=== PATIENT | female | born 1990 | race Caucasian/White ===

== ENCOUNTER 2016-09-30 17:20 | Emergency (ER) | payer BC ==
[~2016-09-30] VITALS: Ht 162.5 cm; Wt 65.8 kg
[~2016-09-30 17:20] MED LIST: CORDROL20 MG PO; EPI EZ PEN1 MG/ML IM; MACROBID100 M1 PO; ZOLOFT100 MG PO
[2016-09-30 18:13] LABS: BASO % 0.2 % (0.0-1.0); EOS % 0.4 % (1.0-4.0); HEMATOCRIT 42.4 % (37.0-47.0); HEMOGLOBIN 14.5 g/dl (12.0-16.0); LYMPH # 0.4 10*3/uL (1.3-4.4); LYMPH % 7.6 % (27.0-41.0); MEAN CELL VOLUME 90.4 fl (81.0-99.0); MEAN CORPUSCULAR HGB 30.9 pg (27.0-31.0); MEAN CORPUSCULAR HGB CONC 34.2 g/dl (33.0-37.0); MEAN PLATELET VOLUME 9.2 fl (9.6-12.3); MONO # 0.4 10*3/uL (0.1-1.0); MONO % 7.2 % (3.0-9.0); NEUT # 4.5 10*3/uL (2.3-7.9); NEUT % 84.4 % (47.0-73.0); PLATELET COUNT AUTOMATED 169 10*3/uL (130-400); RED BLOOD COUNT 4.69 10*6/uL (4.10-5.10); RED CELL DISTRI WIDTH 13.6 % (0-14.5); WHITE BLOOD COUNT 5.3 10*3/uL (4.8-10.8)
[2016-09-30 18:14] LABS: BILIRUBIN NEGATIVE (NEGATIVE); BLOOD 3+ (NEGATIVE); CLARITY SL CLOUDY (CLEAR); COLOR YELLOW (YELLOW); GLUCOSE NEGATIVE (NEGATIVE); KETONE NEGATIVE (NEGATIVE); LEUKO ESTERASE NEGATIVE (NEGATIVE); NITRITE NEGATIVE (NEGATIVE); PROTEIN TRACE (NEGATIVE); SPECIFIC GRAVITY 1.025 (1.005-1.030); UROBILINOGEN 0.2 E.U./dl (0.2-1.0)
[2016-09-30 18:22] LABS: BACTERIA 4+; URINE REFLEX COMMENT YES (NO)
[2016-09-30 18:29] LABS: ALBUMIN 4.3 gm/dl (3.1-4.5); ALKALINE PHOSPHATASE 34 U/L (45-117); BILIRUBIN, TOTAL 0.6 mg/dl (0.2-1.0); BUN 12 mg/dl (7-24); CARBON DIOXIDE 24 mmol/L (21-32); CHLORIDE 106 mmol/L (98-107); EST GLOM FILT AFRICAN AMERICAN > 60 ml/min; GLUCOSE 98 mg/dL (65-99); POTASSIUM 4.1 mmol/L (3.5-5.1); SGOT/AST 16 IU/L (3-35); SGPT/ALT 28 U/L (12-78); SODIUM 141 mmol/L (136-145); TOTAL PROTEIN 7.6 gm/dL (6.4-8.2)
[2016-09-30] MEDS ORDERED: ZOFRAN4 MG PO (18:57)
== END 2016-09-30 18:58 | disposition home or self-care (01) ==
LOC: ED 17:20
PROVIDERS: Nurse Practitioner Family
DX: B34.9 Viral infection, unspecified (principal); F17.200 Nicotine dependence, unspecified, uncomplicated; Z88.0 Allergy status to penicillin; Z88.1 Allergy status to other antibiotic agents; Z88.2 Allergy status to sulfonamides

== ENCOUNTER 2017-07-11 22:39 | Emergency (ER) | payer OTHER ==
[~2017-07-11] VITALS: Ht 162.5 cm; Wt 68.0 kg
[~2017-07-11 22:39] MED LIST changes: +ZOFRAN4 MG PO
[2017-07-11] MEDS ORDERED: PAXIL10 MG PO (22:47)
[2017-07-11] MEDS ORDERED: ATIVAN1 MG PO (22:48)
[2017-07-11 23:07] LABS: BILIRUBIN NEGATIVE (NEGATIVE); BLOOD 3+ (NEGATIVE); CLARITY SL CLOUDY (CLEAR); COLOR YELLOW (YELLOW); GLUCOSE NEGATIVE (NEGATIVE); KETONE NEGATIVE (NEGATIVE); LEUKO ESTERASE NEGATIVE (NEGATIVE); NITRITE NEGATIVE (NEGATIVE); PH 6.5 (5.0-9.0); SPECIFIC GRAVITY 1.015 (1.005-1.030)
[2017-07-11 23:19] LABS: BASO % 0.3 % (0.0-1.0); EOS # 0.1 10*3/uL (0.0-0.4); EOS % 2.2 % (1.0-4.0); HEMATOCRIT 34.8 % (37.0-47.0); HEMOGLOBIN 11.5 g/dl (12.0-16.0); LYMPH # 0.9 10*3/uL (1.3-4.4); LYMPH % 15.3 % (27.0-41.0); MEAN CELL VOLUME 93.3 fl (81.0-99.0); MEAN CORPUSCULAR HGB 30.8 pg (27.0-31.0); MEAN PLATELET VOLUME 9.3 fl (9.6-12.3); MONO # 0.6 10*3/uL (0.1-1.0); MONO % 10.3 % (3.0-9.0); NEUT # 4.3 10*3/uL (2.3-7.9); NEUT % 71.7 % (47.0-73.0); PLATELET COUNT AUTOMATED 219 10*3/uL (130-400); RED BLOOD COUNT 3.73 10*6/uL (4.10-5.10); RED CELL DISTRI WIDTH 13.4 % (0-14.5); WHITE BLOOD COUNT 5.9 10*3/uL (4.8-10.8)
[2017-07-11 23:20] LABS: BACTERIA 2+; MUCOUS TRACE
[2017-07-11 23:34] LABS: ALBUMIN 3.5 gm/dl (3.1-4.5); ALKALINE PHOSPHATASE 52 U/L (45-117); BUN 8 mg/dl (7-24); CHLORIDE 107 mmol/L (98-107); CREATININE 0.85 mg/dL (0.55-1.02); LIPASE 132 U/L (73-393); SGOT/AST 17 IU/L (3-35); SGPT/ALT 18 U/L (12-78); SODIUM 141 mmol/L (136-145)
[2017-07-11] MEDS ORDERED: TESSALON PERLE100 M1 PO (23:53)
[2017-07-11] MEDS ORDERED: PRILOSEC20 M1 PO (23:53)
== END 2017-07-12 00:18 | disposition home or self-care (01) ==
LOC: ED 22:39
PROVIDERS: Physician Assistant
DX: K29.70 Gastritis, unspecified, without bleeding (principal); R10.13 Epigastric pain; K21.9 Gastro-esophageal reflux disease without esophagitis; F17.200 Nicotine dependence, unspecified, uncomplicated; Z79.899 Other long term (current) drug therapy; Z88.2 Allergy status to sulfonamides; Z88.1 Allergy status to other antibiotic agents; Z88.6 Allergy status to analgesic agent

== ENCOUNTER 2017-07-16 18:11 | Emergency (ER) | payer OTHER ==
[~2017-07-16] VITALS: Ht 162.5 cm; Wt 72.6 kg
[~2017-07-16 18:11] MED LIST changes: +ATIVAN1 MG PO; +PAXIL10 MG PO; +PRILOSEC20 M1 PO; +TESSALON PERLE100 M1 PO
[2017-07-16] MEDS ORDERED: LEVOFLOXACIN500 MG PO (18:32)
== END 2017-07-16 18:37 | disposition home or self-care (01) ==
LOC: ED 18:11
DX: Z20.2 Contact with and (suspected) exposure to infections with a predominantly sexual mode of transmission (principal); F17.200 Nicotine dependence, unspecified, uncomplicated; F10.10 Alcohol abuse, uncomplicated; Z79.899 Other long term (current) drug therapy; Z88.2 Allergy status to sulfonamides; Z88.1 Allergy status to other antibiotic agents; Z88.8 Allergy status to other drugs, medicaments and biological substances

== ENCOUNTER 2017-09-12 06:38 | Emergency (ER) | payer OTHER ==
[~2017-09-12] VITALS: Ht 152.4 cm; Wt 77.1 kg
[~2017-09-12 06:38] MED LIST changes: +LEVOFLOXACIN500 MG PO
[2017-09-12 07:27] LABS: BILIRUBIN NEGATIVE (NEGATIVE); BLOOD NEGATIVE (NEGATIVE); CLARITY CLEAR (CLEAR); COLOR YELLOW (YELLOW); GLUCOSE NEGATIVE (NEGATIVE); KETONE NEGATIVE (NEGATIVE); LEUKO ESTERASE TRACE (NEGATIVE); NITRITE NEGATIVE (NEGATIVE); SPECIFIC GRAVITY 1.015 (1.005-1.030); UROBILINOGEN 0.2 E.U./dl (0.2-1.0)
[2017-09-12 07:56] LABS: BACTERIA TRACE; WBC 21-30 wbc/hpf (0-5)
[2017-09-12] MEDS ORDERED: CYCLOBENZAPRINE10 MG PO (08:12)
== END 2017-09-12 08:19 | disposition home or self-care (01) ==
LOC: ED 06:38
PROVIDERS: Student in an Organized Health Care Education/Training Program
DX: M54.5 Low back pain (principal); Z88.2 Allergy status to sulfonamides; Z88.1 Allergy status to other antibiotic agents

== ENCOUNTER 2017-09-18 11:30 | Emergency (ER) | payer OTHER ==
[~2017-09-18] VITALS: Ht 162.5 cm; Wt 77.1 kg
[~2017-09-18 11:30] MED LIST changes: +CYCLOBENZAPRINE10 MG PO
[2017-09-18] MEDS ORDERED: CYCLOBENZAPRINE10 MG PO (13:29)
[2017-09-18] MEDS ORDERED: PREDNISONE10 MG PO (13:29)
== END 2017-09-18 11:45 | disposition home or self-care (01) ==
LOC: ED 11:30
DX: M51.86 Other intervertebral disc disorders, lumbar region (principal); F17.200 Nicotine dependence, unspecified, uncomplicated; Z88.2 Allergy status to sulfonamides; Z88.1 Allergy status to other antibiotic agents

== ENCOUNTER 2018-01-08 03:41 | Emergency (ER) | payer OTHER ==
[~2018-01-08] VITALS: Wt 79.4 kg
[~2018-01-08 03:41] MED LIST changes: +PREDNISONE10 MG PO
== END 2018-01-08 04:10 | disposition home or self-care (01) ==
LOC: ED 03:41
DX: B37.9 Candidiasis, unspecified (principal); Z79.899 Other long term (current) drug therapy; Z88.1 Allergy status to other antibiotic agents; Z88.2 Allergy status to sulfonamides

== ENCOUNTER 2018-02-10 05:06 | Emergency (ER) | payer OTHER ==
[~2018-02-10] VITALS: Ht 160 cm; Wt 81.6 kg
--- NOTE | ~2018-02-10 | EKG ---
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
[2018-02-10 05:52] LABS: BASO # 0.1 10*3/uL (0.0-0.1); BASO % 0.7 % (0.0-1.0); EOS # 0.2 10*3/uL (0.0-0.4); EOS % 3.5 % (1.0-4.0); HEMATOCRIT 39.6 % (37.0-47.0); HEMOGLOBIN 13.3 g/dl (12.0-16.0); LYMPH # 2.7 10*3/uL (1.3-4.4); LYMPH % 38.9 % (27.0-41.0); MEAN CELL VOLUME 90.4 fl (81.0-99.0); MEAN CORPUSCULAR HGB 30.4 pg (27.0-31.0); MEAN CORPUSCULAR HGB CONC 33.6 g/dl (33.0-37.0); MEAN PLATELET VOLUME 9.3 fl (9.6-12.3); MONO # 0.5 10*3/uL (0.1-1.0); NEUT # 3.4 10*3/uL (2.3-7.9); NEUT % 49.5 % (47.0-73.0); PLATELET COUNT AUTOMATED 268 10*3/uL (130-400); RED BLOOD COUNT 4.38 10*6/uL (4.10-5.10); RED CELL DISTRI WIDTH 12.6 % (0-14.5); WHITE BLOOD COUNT 6.9 10*3/uL (4.8-10.8)
[2018-02-10 06:03] LABS: ALBUMIN 4.3 gm/dl (3.1-4.5); ALKALINE PHOSPHATASE 46 U/L (45-117); BUN 14 mg/dl (7-24); CHLORIDE 102 mmol/L (98-107); CREATININE 0.98 mg/dL (0.55-1.02); POTASSIUM 3.9 mmol/L (3.5-5.1); SGOT/AST 19 IU/L (3-35); SGPT/ALT 19 U/L (12-78); SODIUM 138 mmol/L (136-145); TOTAL PROTEIN 7.6 gm/dL (6.4-8.2)
[2018-02-10] MEDS ORDERED: Bactroban Oint22 GM T (06:05)
[2018-02-10] MEDS ORDERED: VIBRAMYCIN100 MG PO ×2 (06:05→06:14)
[2018-02-10 06:07] LABS: TROPONIN I < 0.015 ng/ml (<0.045)
[2018-02-10] MEDS ORDERED: PEPCID20 MG PO (06:14)
[2018-02-10] MEDS ORDERED: Motrin,Rufen800 MG PO (06:15)
== END 2018-02-10 06:18 | disposition home or self-care (01) ==
LOC: ED 05:06
PROVIDERS: Emergency Medicine Emergency Medical Services
DX: L02.214 Cutaneous abscess of groin (principal); Z79.899 Other long term (current) drug therapy; Z88.2 Allergy status to sulfonamides; Z88.1 Allergy status to other antibiotic agents

== ENCOUNTER 2018-04-14 18:58 | Emergency (ER) | payer OTHER ==
[~2018-04-14] VITALS: Ht 162.5 cm; Wt 81.6 kg
[~2018-04-14 18:58] MED LIST changes: +Bactroban Oint22 GM T; +Motrin,Rufen800 MG PO; +PEPCID20 MG PO; +VIBRAMYCIN100 MG PO
[2018-04-14] MEDS ORDERED: AMOXICILLIN500 M2 PO (19:45)
[2018-04-14] MEDS ORDERED: IBUPROFEN600 MG PO (19:45)
[2018-04-14] MEDS ORDERED: DIFLUCAN150 MG PO (20:06)
== END 2018-04-14 20:10 | disposition home or self-care (01) ==
LOC: ED 18:58
DX: K02.9 Dental caries, unspecified (principal); Z88.2 Allergy status to sulfonamides; Z88.1 Allergy status to other antibiotic agents; Z79.899 Other long term (current) drug therapy

== ENCOUNTER 2018-05-01 00:05 | Emergency (ER) | payer OTHER ==
[~2018-05-01] VITALS: Ht 162.5 cm; Wt 81.6 kg
[~2018-05-01 00:05] MED LIST changes: +AMOXICILLIN500 M2 PO; +DIFLUCAN150 MG PO; +IBUPROFEN600 MG PO
[2018-05-01] MEDS ORDERED: CLEOCIN HCL150 MG PO (00:53)
[2018-05-01] MEDS ORDERED: NAPROSYN500 MG PO (00:53)
== END 2018-05-01 01:12 | disposition home or self-care (01) ==
LOC: ED 00:05
DX: S02.5XXA Fracture of tooth (traumatic), initial encounter for closed fracture (principal); K02.9 Dental caries, unspecified; Z88.2 Allergy status to sulfonamides; Z88.1 Allergy status to other antibiotic agents; Z79.899 Other long term (current) drug therapy; X58.XXXA Exposure to other specified factors, initial encounter; Y93.89 Activity, other specified; Y92.89 Other specified places as the place of occurrence of the external cause; Y99.8 Other external cause status

== ENCOUNTER 2018-09-10 00:21 | Emergency (ER) | payer SELFPAY ==
[~2018-09-10] VITALS: Ht 160 cm; Wt 79.4 kg
[~2018-09-10 00:21] MED LIST changes: +CLEOCIN HCL150 MG PO; +NAPROSYN500 MG PO
[2018-09-10] MEDS ORDERED: PROVENTIL HFA6.7 GM INH (00:47)
[2018-09-10] MEDS ORDERED: AMOXICILLIN500 M2 PO (02:49)
[2018-09-10] MEDS ORDERED: DIFLUCAN150 MG PO (02:49)
[2018-09-10] MEDS ORDERED: TESSALON PERLE100 M1 PO (02:57)
[2018-09-23] MEDS ORDERED: AUGMENTIN 875875 MG PO (06:42)
[2018-09-23] MEDS ORDERED: Motrin,Rufen800 MG PO (06:42)
[2018-09-23] MEDS ORDERED: NASAL DECONGEST30 MG PO (06:42)
[2018-09-23] MEDS ORDERED: FLONASE ALLERG9.9 ML NAS (06:42)
[2018-09-24] MEDS ORDERED: Motrin,Rufen800 MG PO (19:50)
[2018-09-24] MEDS ORDERED: MEDROL DOSEPAK4 MG PO (19:50)
[2018-09-24] MEDS ORDERED: CYCLOBENZAPRINE5 M3 PO (19:50)
== END 2018-09-10 02:58 | disposition home or self-care (01) ==
LOC: ED 00:21
DX: J20.9 Acute bronchitis, unspecified (principal); Z79.899 Other long term (current) drug therapy; Z88.2 Allergy status to sulfonamides; Z88.1 Allergy status to other antibiotic agents

== ENCOUNTER 2019-05-16 08:31 | Emergency (ER) | payer OTHER ==
[~2019-05-16] VITALS: Ht 160 cm; Wt 86.2 kg
[~2019-05-16 08:31] MED LIST changes: +AUGMENTIN 875875 MG PO; +CYCLOBENZAPRINE5 M3 PO; +FLONASE ALLERG9.9 ML NAS; +MEDROL DOSEPAK4 MG PO; +NASAL DECONGEST30 MG PO; +PROVENTIL HFA6.7 GM INH
[2019-05-16] MEDS ORDERED: Motrin,Rufen800 MG PO (09:17)
[2019-05-16] MEDS ORDERED: AUGMENTIN 875875 MG PO (09:17)
[2019-05-16] MEDS ORDERED: DIFLUCAN150 MG PO (09:20)
== END 2019-05-16 09:23 | disposition home or self-care (01) ==
LOC: ED 08:31
DX: H66.91 Otitis media, unspecified, right ear (principal); J45.909 Unspecified asthma, uncomplicated; Z88.2 Allergy status to sulfonamides; Z88.1 Allergy status to other antibiotic agents; Z91.040 Latex allergy status; Z79.899 Other long term (current) drug therapy; Z79.2 Long term (current) use of antibiotics

== ENCOUNTER 2020-03-26 05:49 | Emergency (ER) | payer OTHER ==
[~2020-03-26] VITALS: Ht 160 cm; Wt 88.9 kg
[2020-03-26 06:19] LABS: BASO # 0.1 10*3/uL (0.0-0.1); BASO % 0.7 % (0.0-1.0); EOS # 0.1 10*3/uL (0.0-0.4); EOS % 1.1 % (1.0-4.0); LYMPH # 2.3 10*3/uL (1.3-4.4); MEAN CELL VOLUME 86.5 fl (81.0-99.0); MEAN CORPUSCULAR HGB 30.2 pg (27.0-31.0); MEAN CORPUSCULAR HGB CONC 34.9 g/dl (33.0-37.0); MEAN PLATELET VOLUME 9.1 fl (9.6-12.3); MONO # 0.5 10*3/uL (0.1-1.0); MONO % 6.5 % (3.0-9.0); NEUT # 4.3 10*3/uL (2.3-7.9); NEUT % 59.4 % (47.0-73.0); PLATELET COUNT AUTOMATED 302 10*3/uL (130-400); RED BLOOD COUNT 4.97 10*6/uL (4.10-5.10); RED CELL DISTRI WIDTH 12.3 % (0-14.5); WHITE BLOOD COUNT 7.2 10*3/uL (4.8-10.8)
[2020-03-26 06:37] LABS: ALBUMIN 4.8 gm/dl (3.1-4.5); ALKALINE PHOSPHATASE 49 U/L (45-117); BUN 11 mg/dl (7-24); CHLORIDE 107 mmol/L (98-107); CPK 272 U/L (26-192); CREATININE 1.27 mg/dL (0.55-1.02); POTASSIUM 3.5 mmol/L (3.5-5.1); SGOT/AST 20 IU/L (3-35); SGPT/ALT 27 U/L (12-78); SODIUM 138 mmol/L (136-145); TOTAL PROTEIN 8.3 gm/dL (6.4-8.2)
[2020-03-26 06:38] LABS: TROPONIN I < 0.015 ng/ml (<0.045)
[2020-03-26 07:31] LABS: BILIRUBIN NEGATIVE; BLOOD 2+ (NEGATIVE); CLARITY CLOUDY (CLEAR); COLOR YELLOW (YELLOW); GLUCOSE NEGATIVE; KETONE NEGATIVE; LEUKO ESTERASE TRACE (NEGATIVE); NITRITE NEGATIVE (NEGATIVE); SPECIFIC GRAVITY 1.015 (1.001-1.030); UROBILINOGEN 0.2 E.U./dl (0.0-1.0)
[2020-03-26 07:37] LABS: URINE AMPHETAMINES > 1000 (1000ng/ml); URINE BARBITURATES < 200 (200ng/ml); URINE BENZODIAZEPINES < 200 (200ng/ml); URINE CANNABINOIDS (THC) > 50 (50ng/ml); URINE COCAINE < 300 (300ng/ml); URINE METHADONE < 300 (300ng/ml); URINE OPIATES < 300 (300ng/ml)
[2020-03-26 07:38] LABS: URINE PHENCYCLIDINE < 25 (25ng/ml)
[2020-03-26 07:44] LABS: EPITHELIAL CELLS 31-40; WBC 16-20 wbc/hpf (0-5)
[2020-03-26 07:45] LABS: BACTERIA 3+
== END 2020-03-26 08:51 | disposition home or self-care (01) ==
LOC: ED 05:49
PROVIDERS: Emergency Medicine
DX: F15.10 Other stimulant abuse, uncomplicated (principal); R07.89 Other chest pain; R06.02 Shortness of breath; R00.0 Tachycardia, unspecified; J45.909 Unspecified asthma, uncomplicated; Z88.1 Allergy status to other antibiotic agents; Z91.040 Latex allergy status; Z88.8 Allergy status to other drugs, medicaments and biological substances; Z88.2 Allergy status to sulfonamides; Z79.899 Other long term (current) drug therapy

== ENCOUNTER 2020-06-28 00:18 | Emergency (ER) | payer OTHER ==
[~2020-06-28] VITALS: Ht 162.5 cm; Wt 88.5 kg
== END 2020-06-28 01:13 | disposition home or self-care (01) ==
LOC: ED 00:18
DX: F41.9 Anxiety disorder, unspecified (principal); Z88.2 Allergy status to sulfonamides; Z91.040 Latex allergy status; Z88.8 Allergy status to other drugs, medicaments and biological substances; Z79.899 Other long term (current) drug therapy; Z79.2 Long term (current) use of antibiotics

== ENCOUNTER 2021-01-24 17:12 | Emergency (ER) | payer OTHER ==
[~2021-01-24] VITALS: Ht 160 cm; Wt 83.9 kg
[2021-01-24 20:26] LABS: URINE AMPHETAMINES < 1000 (1000ng/ml); URINE BARBITURATES < 200 (200ng/ml); URINE BENZODIAZEPINES < 200 (200ng/ml); URINE CANNABINOIDS (THC) > 50 (50ng/ml); URINE COCAINE < 300 (300ng/ml); URINE METHADONE < 300 (300ng/ml); URINE OPIATES < 300 (300ng/ml)
[2021-01-24 20:33] LABS: URINE PHENCYCLIDINE < 25 (25ng/ml)
[2021-01-24] MEDS ORDERED: LORAZEPAM1 MG PO (21:03)
== END 2021-01-24 21:12 | disposition home or self-care (01) ==
LOC: ED 17:12
PROVIDERS: Nurse Practitioner
DX: F41.9 Anxiety disorder, unspecified (principal); F19.10 Other psychoactive substance abuse, uncomplicated; F10.10 Alcohol abuse, uncomplicated; Z76.0 Encounter for issue of repeat prescription; Z88.2 Allergy status to sulfonamides; Z88.1 Allergy status to other antibiotic agents; Z91.040 Latex allergy status; Z88.8 Allergy status to other drugs, medicaments and biological substances; Z79.899 Other long term (current) drug therapy; Y90.0 Blood alcohol level of less than 20 mg/100 ml

== ENCOUNTER 2021-08-19 02:21 | Emergency (ER) | payer OTHER ==
[~2021-08-19] VITALS: Ht 160 cm; Wt 79.4 kg
[~2021-08-19 02:21] MED LIST changes: +LORAZEPAM1 MG PO
[2021-08-19] MEDS ORDERED: CEPHALEXIN500 M1 PO (03:23)
== END 2021-08-19 04:01 | disposition home or self-care (01) ==
LOC: ED 02:21
DX: L02.412 Cutaneous abscess of left axilla (principal); L03.112 Cellulitis of left axilla; L73.2 Hidradenitis suppurativa; Z88.1 Allergy status to other antibiotic agents; Z91.040 Latex allergy status; Z79.899 Other long term (current) drug therapy; F17.200 Nicotine dependence, unspecified, uncomplicated

== ENCOUNTER 2021-10-17 03:21 | Emergency (ER) | payer OTHER ==
[~2021-10-17] VITALS: Ht 160 cm; Wt 83.2 kg
[~2021-10-17 03:21] MED LIST changes: +CEPHALEXIN500 M1 PO
[2021-10-17 04:26] LABS: URINE AMPHETAMINES > 1000 (1000ng/ml); URINE BARBITURATES < 200 (200ng/ml); URINE BENZODIAZEPINES < 200 (200ng/ml); URINE CANNABINOIDS (THC) > 50 (50ng/ml); URINE COCAINE < 300 (300ng/ml); URINE METHADONE < 300 (300ng/ml); URINE OPIATES < 300 (300ng/ml)
[2021-10-17 04:38] LABS: URINE PHENCYCLIDINE < 25 (25ng/ml)
== END 2021-10-17 05:17 | disposition home or self-care (01) ==
LOC: ED 03:21
PROVIDERS: Emergency Medicine
DX: F41.9 Anxiety disorder, unspecified (principal); F19.10 Other psychoactive substance abuse, uncomplicated; F17.200 Nicotine dependence, unspecified, uncomplicated; Z79.899 Other long term (current) drug therapy; Z88.2 Allergy status to sulfonamides; Z88.1 Allergy status to other antibiotic agents; Z91.040 Latex allergy status

== ENCOUNTER 2021-11-28 17:51 | Emergency (ER) | payer OTHER ==
[2021-11-28 19:12] LABS: BILIRUBIN Negative (Negative); BLOOD Negative (Negative); CLARITY Clear (Clear); COLOR Yellow (Yellow); GLUCOSE Negative (Negative); KETONE Negative (Negative); LEUKO ESTERASE Trace (Negative); NITRITE Negative (Negative); PH 7.5 (4.5-8.0); SPECIFIC GRAVITY <= 1.005 (1.001-1.030); UROBILINOGEN 0.2 E.U./dl (0.0-1.0)
[2021-11-28 19:20] LABS: BACTERIA 1+; EPITHELIAL CELLS 0-2
[2021-11-28 19:23] LABS: URINE AMPHETAMINES < 1000 (1000ng/ml); URINE BARBITURATES < 200 (200ng/ml); URINE BENZODIAZEPINES < 200 (200ng/ml); URINE CANNABINOIDS (THC) < 50 (50ng/ml); URINE COCAINE < 300 (300ng/ml); URINE METHADONE < 300 (300ng/ml); URINE OPIATES < 300 (300ng/ml)
[2021-11-28 19:25] LABS: URINE PHENCYCLIDINE < 25 (25ng/ml)
[2021-11-28 20:15] LABS: BASO % 0.4 % (0.0-1.0); HEMATOCRIT 38.1 % (37.0-47.0); LYMPH # 1.6 10*3/uL (1.3-4.4); LYMPH % 19.7 % (27.0-41.0); MEAN CORPUSCULAR HGB 29.6 pg (27.0-31.0); MEAN CORPUSCULAR HGB CONC 33.6 g/dl (33.0-37.0); MEAN PLATELET VOLUME 8.8 fl (9.6-12.3); MONO # 0.4 10*3/uL (0.1-1.0); MONO % 4.3 % (3.0-9.0); NEUT # 6.1 10*3/uL (2.3-7.9); NEUT % 75.4 % (47.0-73.0); PLATELET COUNT AUTOMATED 290 10*3/uL (130-400); RED BLOOD COUNT 4.33 10*6/uL (4.10-5.10); RED CELL DISTRI WIDTH 13.1 % (0-14.5); WHITE BLOOD COUNT 8.1 10*3/uL (4.8-10.8)
[2021-11-28 20:32] LABS: ALKALINE PHOSPHATASE 40 U/L (45-117); BUN 9 mg/dl (7-24); CHLORIDE 111 mmol/L (98-107); POTASSIUM 4.4 mmol/L (3.5-5.1); SGOT/AST 24 IU/L (3-35); SGPT/ALT 27 U/L (12-78); SODIUM 141 mmol/L (136-145); TOTAL PROTEIN 7.4 gm/dL (6.4-8.2)
[2021-11-28 20:58] LABS: ETHYL ALCOHOL < 3.0 mg/dl (<3)
[2021-11-28 20:59] LABS: ACETAMINOPHEN (TYLENOL) < 5.0 ug/ml (10-30)
[2021-11-28] MEDS ORDERED: BENZTROPINE ME0.5 MG PO (22:34)
[2021-11-28] MEDS ORDERED: BUSPAR5 MG PO (22:34)
[2021-11-28] MEDS ORDERED: HYDROXYZINE PAM50 MG PO (22:35)
[2021-11-28] MEDS ORDERED: ESCITALOPRAM OX10 MG PO (22:35)
[2021-11-28] MEDS ORDERED: LAMOTRIGINE25 M1 PO (22:35)
[2021-11-28] MEDS ORDERED: OLANZAPINE7.5 M1 PO (22:36)
[2021-11-28] MEDS ORDERED: VENT7GM INH (22:39)
[2021-11-28] MEDS ORDERED: MELATONIN3 MG PO (22:40)
== END 2021-11-29 02:20 ==
LOC: ED 17:51
PROVIDERS: Emergency Medicine
DX: F43.22 Adjustment disorder with anxiety (principal); Z20.822 Contact with and (suspected) exposure to COVID-19

== ENCOUNTER 2022-01-11 19:11 | Emergency (ER) | payer OTHER ==
[~2022-01-11] VITALS: Ht 160 cm; Wt 99.8 kg
[~2022-01-11 19:11] MED LIST changes: +BENZTROPINE ME0.5 MG PO; +BUSPAR5 MG PO; +ESCITALOPRAM OX10 MG PO; +HYDROXYZINE PAM50 MG PO; +LAMOTRIGINE25 M1 PO; +MELATONIN3 MG PO; +OLANZAPINE7.5 M1 PO; +VENT7GM INH
[2022-01-11] MEDS ORDERED: MINIPRESS1 M1 PO (19:37)
[2022-01-11] MEDS ORDERED: ZIPRASIDONE HCL40 MG PO (19:38)
[2022-01-11] MEDS ORDERED: LITHIUM CARBON600 MG PO (19:39)
[2022-01-11] MEDS ORDERED: MIRTAZAPINE15 M2 PO (19:39)
[2022-01-11] MEDS ORDERED: BUSPIRONE HCL30 MG PO (19:41)
[2022-01-11 19:52] LABS: BASO % 0.3 % (0.0-1.0); EOS % 0.6 % (1.0-4.0); LYMPH # 1.8 10*3/uL (1.3-4.4); LYMPH % 25.7 % (27.0-41.0); MEAN CELL VOLUME 91.4 fl (81.0-99.0); MEAN CORPUSCULAR HGB CONC 32.9 g/dl (33.0-37.0); MEAN PLATELET VOLUME 8.9 fl (9.6-12.3); MONO # 0.5 10*3/uL (0.1-1.0); MONO % 6.8 % (3.0-9.0); NEUT # 4.5 10*3/uL (2.3-7.9); NEUT % 66.3 % (47.0-73.0); PLATELET COUNT AUTOMATED 248 10*3/uL (130-400); RED BLOOD COUNT 3.83 10*6/uL (4.10-5.10); RED CELL DISTRI WIDTH 13.2 % (0-14.5); WHITE BLOOD COUNT 6.8 10*3/uL (4.8-10.8)
[2022-01-11 20:07] LABS: ALKALINE PHOSPHATASE 37 U/L (45-117); BUN 13 mg/dl (7-24); CHLORIDE 108 mmol/L (98-107); CREATININE 0.88 mg/dL (0.55-1.02); POTASSIUM 4.1 mmol/L (3.5-5.1); SGOT/AST 35 IU/L (3-35); SGPT/ALT 84 U/L (12-78); SODIUM 141 mmol/L (136-145); TOTAL PROTEIN 6.4 gm/dL (6.4-8.2)
== END 2022-01-11 23:32 | disposition home or self-care (01) ==
LOC: ED 19:11
PROVIDERS: Physician Assistant
DX: R60.0 Localized edema (principal); Z91.040 Latex allergy status; Z88.1 Allergy status to other antibiotic agents

== ENCOUNTER 2022-06-03 19:16 | Emergency (ER) | payer OTHER ==
[~2022-06-03] VITALS: Ht 160 cm; Wt 99.8 kg
[~2022-06-03 19:16] MED LIST changes: +BUSPIRONE HCL30 MG PO; +LITHIUM CARBON600 MG PO; +MINIPRESS1 M1 PO; +MIRTAZAPINE15 M2 PO; +ZIPRASIDONE HCL40 MG PO
[2022-06-03] MEDS ORDERED: AMOX-CLAV 875-1 EACH PO (21:16)
== END 2022-06-03 21:31 | disposition home or self-care (01) ==
LOC: ED 19:16
DX: H66.91 Otitis media, unspecified, right ear (principal); Z20.822 Contact with and (suspected) exposure to COVID-19; J06.9 Acute upper respiratory infection, unspecified; Z88.1 Allergy status to other antibiotic agents; Z91.040 Latex allergy status

== ENCOUNTER → 2022-10-07 | Outpatient (CLI) | payer MEDICAID ==
[~2022-10-07] MED LIST changes: +AMOX-CLAV 875-1 EACH PO
== END | disposition home or self-care (01) ==
LOC: RAD 15:39
PROVIDERS: ATTEND Nurse Practitioner Family
DX: M54.12 Radiculopathy, cervical region (principal)

== ENCOUNTER 2022-11-20 22:26 | Emergency (ER) | payer MEDICAID ==
[~2022-11-20] VITALS: Ht 160 cm; Wt 97.5 kg
[2022-11-20] MEDS ORDERED: Bactroban Oint22 GM T (22:41)
[2022-11-20] MEDS ORDERED: AUVELITY ER 451 EACH PO (22:41)
[2022-11-20] MEDS ORDERED: HYDROXYZINE PAM50 MG PO (22:42)
[2022-11-20] MEDS ORDERED: LORAZEPAM1 MG PO (22:42)
[2022-11-20] MEDS ORDERED: PENICILLIN VK500 MG PO (22:46)
== END 2022-11-20 22:50 | disposition home or self-care (01) ==
LOC: ED 22:26
DX: B08.4 Enteroviral vesicular stomatitis with exanthem (principal); J45.909 Unspecified asthma, uncomplicated; F41.9 Anxiety disorder, unspecified; F31.9 Bipolar disorder, unspecified; Z88.2 Allergy status to sulfonamides; Z88.1 Allergy status to other antibiotic agents; Z91.040 Latex allergy status; Z88.8 Allergy status to other drugs, medicaments and biological substances; Z98.890 Other specified postprocedural states

== ENCOUNTER → 2022-11-30 | Outpatient (CLI) | payer MEDICAID ==
[~2022-11-30] MED LIST changes: +AUVELITY ER 451 EACH PO; +PENICILLIN VK500 MG PO
[2022-11-30 12:36] LABS: BASO % 0.4 % (0.0-1.0); EOS # 0.2 10*3/uL (0.0-0.4); EOS % 2.7 % (1.0-4.0); LYMPH # 1.9 10*3/uL (1.3-4.4); LYMPH % 27.7 % (27.0-41.0); MEAN CELL VOLUME 91.3 fl (81.0-99.0); MEAN CORPUSCULAR HGB CONC 31.8 g/dl (33.0-37.0); MEAN PLATELET VOLUME 8.7 fl (9.6-12.3); MONO # 0.4 10*3/uL (0.1-1.0); NEUT # 4.5 10*3/uL (2.3-7.9); NEUT % 63.9 % (47.0-73.0); PLATELET COUNT AUTOMATED 248 10*3/uL (130-400); RED BLOOD COUNT 4.38 10*6/uL (4.10-5.10); RED CELL DISTRI WIDTH 13.1 % (0-14.5)
[2022-11-30 13:13] LABS: ALKALINE PHOSPHATASE 41 U/L (46-116); BUN 12 mg/dl (9-23); CHLORIDE 108 mmol/L (98-107); CHOLESTEROL 179 mg/dL (<200); LDL CHOLESTEROL 115 mg/dL (9-159); POTASSIUM 4.4 mmol/L (3.4-5.1); SGPT/ALT 25 U/L (10-49); TRIGLYCERIDES 151 mg/dl (<150)
== END | disposition home or self-care (01) ==
LOC: LAB 12:12
PROVIDERS: ATTEND Nurse Practitioner Family
DX: L73.2 Hidradenitis suppurativa (principal); K21.9 Gastro-esophageal reflux disease without esophagitis; L30.9 Dermatitis, unspecified; E16.1 Other hypoglycemia

== ENCOUNTER → 2022-12-14 | Outpatient (CLI) | payer MEDICAID | END | disposition home or self-care (01) | LOC: LAB 13:55 | PROVIDERS: ATTEND Social Worker Clinical | DX: Z51.81 Encounter for therapeutic drug level monitoring (principal); Z79.899 Other long term (current) drug therapy ==

== ENCOUNTER → 2023-04-19 | Outpatient (CLI) | payer MEDICAID ==
[2023-04-19 14:05] LABS: BASO # 0.1 10*3/uL (0.0-0.1); BASO % 0.8 % (0.0-1.0); EOS # 0.2 10*3/uL (0.0-0.4); EOS % 3.5 % (1.0-4.0); LYMPH % 33.1 % (27.0-41.0); MEAN CELL VOLUME 89.9 fl (81.0-99.0); MEAN CORPUSCULAR HGB 30.3 pg (27.0-31.0); MEAN CORPUSCULAR HGB CONC 33.8 g/dl (33.0-37.0); MEAN PLATELET VOLUME 8.8 fl (9.6-12.3); MONO # 0.4 10*3/uL (0.1-1.0); MONO % 5.8 % (3.0-9.0); NEUT # 3.4 10*3/uL (2.3-7.9); NEUT % 56.5 % (47.0-73.0); PLATELET COUNT AUTOMATED 242 10*3/uL (130-400); RED BLOOD COUNT 4.45 10*6/uL (4.10-5.10); RED CELL DISTRI WIDTH 13.2 % (0-14.5)
[2023-04-19 14:34] LABS: ALKALINE PHOSPHATASE 40 U/L (46-116); BUN 14 mg/dl (9-23); CHLORIDE 106 mmol/L (98-107); CHOLESTEROL 165 mg/dL (<200); LDL CHOLESTEROL 97 mg/dL (9-159); POTASSIUM 4.4 mmol/L (3.4-5.1); SGPT/ALT 15 U/L (10-49); TOTAL PROTEIN 6.9 gm/dL (6.0-8.0); TRIGLYCERIDES 132 mg/dl (<150)
== END | disposition home or self-care (01) ==
LOC: LAB 13:38
PROVIDERS: Nurse Practitioner Family; ATTEND Social Worker Clinical
DX: Z51.81 Encounter for therapeutic drug level monitoring (principal); M47.816 Spondylosis without myelopathy or radiculopathy, lumbar region; M48.061 Spinal stenosis, lumbar region without neurogenic claudication; L73.2 Hidradenitis suppurativa; E16.1 Other hypoglycemia; G89.29 Other chronic pain; K08.9 Disorder of teeth and supporting structures, unspecified; R25.1 Tremor, unspecified; Z79.899 Other long term (current) drug therapy

== ENCOUNTER → 2023-10-12 | Outpatient (CLI) | payer MEDICARE, MEDICAID ==
[2023-10-12 10:11] LABS: BASO % 0.8 % (0.0-1.0); EOS # 0.2 10*3/uL (0.0-0.4); EOS % 4.5 % (1.0-4.0); HEMATOCRIT 38.3 % (37.0-47.0); LYMPH # 1.9 10*3/uL (1.3-4.4); LYMPH % 35.8 % (27.0-41.0); MEAN CELL VOLUME 90.8 fl (81.0-99.0); MEAN CORPUSCULAR HGB 28.2 pg (27.0-31.0); MEAN CORPUSCULAR HGB CONC 31.1 g/dl (33.0-37.0); MEAN PLATELET VOLUME 8.6 fl (9.6-12.3); MONO # 0.3 10*3/uL (0.1-1.0); NEUT # 2.8 10*3/uL (2.3-7.9); NEUT % 52.7 % (47.0-73.0); PLATELET COUNT AUTOMATED 269 10*3/uL (130-400); RED BLOOD COUNT 4.22 10*6/uL (4.10-5.10); RED CELL DISTRI WIDTH 13.7 % (0-14.5); WHITE BLOOD COUNT 5.3 10*3/uL (4.8-10.8)
[2023-10-12 10:51] LABS: ALKALINE PHOSPHATASE 40 U/L (46-116); BUN 9 mg/dl (9-23); CHLORIDE 107 mmol/L (98-107); LIPASE 54 U/L (12-53); POTASSIUM 4.3 mmol/L (3.4-5.1); SGPT/ALT 14 U/L (5-49); TOTAL PROTEIN 6.7 gm/dL (6.0-8.0)
== END | disposition home or self-care (01) ==
LOC: LAB 09:42
PROVIDERS: ATTEND Nurse Practitioner Family
DX: K21.9 Gastro-esophageal reflux disease without esophagitis (principal); R11.10 Vomiting, unspecified

== ENCOUNTER → 2024-05-04 | Outpatient (CLI) | payer OTHER, MEDICAID ==
[2024-05-04 12:33] LABS: BASO % 0.8 % (0.0-1.0); EOS # 0.1 10*3/uL (0.0-0.4); EOS % 2.6 % (1.0-4.0); HEMATOCRIT 39.2 % (37.0-47.0); LYMPH # 1.7 10*3/uL (1.3-4.4); LYMPH % 34.3 % (27.0-41.0); MEAN CELL VOLUME 87.9 fl (81.0-99.0); MEAN CORPUSCULAR HGB 28.5 pg (27.0-31.0); MEAN CORPUSCULAR HGB CONC 32.4 g/dl (33.0-37.0); MONO # 0.4 10*3/uL (0.1-1.0); MONO % 6.9 % (3.0-9.0); NEUT # 2.8 10*3/uL (2.3-7.9); NEUT % 55.2 % (47.0-73.0); PLATELET COUNT AUTOMATED 246 10*3/uL (130-400); RED BLOOD COUNT 4.46 10*6/uL (4.10-5.10); RED CELL DISTRI WIDTH 13.3 % (0-14.5)
[2024-05-04 13:00] LABS: ALKALINE PHOSPHATASE 45 U/L (46-116); BUN 13 mg/dl (9-23); CHLORIDE 106 mmol/L (98-107); CHOLESTEROL 210 mg/dL (<200); LDL CHOLESTEROL 132 mg/dL (9-159); POTASSIUM 4.3 mmol/L (3.4-5.1); SGPT/ALT 17 U/L (5-49); TOTAL PROTEIN 6.9 gm/dL (6.0-8.0); TRIGLYCERIDES 225 mg/dl (<150)
== END | disposition home or self-care (01) ==
LOC: LAB 12:05
PROVIDERS: Nurse Practitioner Family; ATTEND Social Worker Clinical
DX: Z51.81 Encounter for therapeutic drug level monitoring (principal); E16.1 Other hypoglycemia; G89.29 Other chronic pain; E66.09 Other obesity due to excess calories; Z79.899 Other long term (current) drug therapy

== ENCOUNTER 2024-06-13 20:42 | Emergency (ER) | payer OTHER, MEDICAID ==
[~2024-06-13] VITALS: Ht 162.5 cm; Wt 108.9 kg
[2024-06-13] MEDS ORDERED: PREDNISONE20 M1 PO (22:31)
[2024-06-13] MEDS ORDERED: methylPREDNISolone sod succ 125 MG VIAL IM ONE (22:45)
[2024-06-13] MEDS ORDERED: Albuterol Sulf/Ipratropium 3 ML VIAL NEB ONE (22:50)
== END 2024-06-13 22:34 | disposition home or self-care (01) ==
LOC: ED 20:42
DX: J20.8 Acute bronchitis due to other specified organisms (principal); Z20.822 Contact with and (suspected) exposure to COVID-19; R11.2 Nausea with vomiting, unspecified; Z88.2 Allergy status to sulfonamides; Z88.1 Allergy status to other antibiotic agents; Z91.040 Latex allergy status; Z79.899 Other long term (current) drug therapy

== ENCOUNTER 2025-03-09 14:53 | Emergency (ER) | payer OTHER ==
[~2025-03-09] VITALS: Ht 160 cm; Wt 108.9 kg
[~2025-03-09 14:53] MED LIST changes: +PREDNISONE20 M1 PO
[2025-03-09] MEDS ORDERED: Metoclopramide Hydrochloride 10 MG/2 ML VIAL IV ONE (16:45)
[2025-03-09] MEDS ORDERED: diphenhydrAMINE hydrochloride 50 MG/ML VIAL IV ONE (16:45)
[2025-03-09] MEDS ORDERED: SODIUM CHLORIDE 0.9% 500 ML IV ONE (16:45)
[2025-03-09] MEDS ORDERED: Ondansetron Hydrochloride 4 MG/2 ML VIAL IV ONE (16:45)
[2025-03-09 17:15] LABS: BASO # 0.1 10*3/uL (0.0-0.1); BASO % 0.4 % (0.0-1.0); EOS # 0.1 10*3/uL (0.0-0.4); EOS % 0.6 % (1.0-4.0); MEAN CELL VOLUME 88.1 fl (81.0-99.0); MEAN CORPUSCULAR HGB 29.4 pg (27.0-31.0); MEAN PLATELET VOLUME 8.9 fl (9.6-12.3); MONO # 0.7 10*3/uL (0.1-1.0); MONO % 5.9 % (3.0-9.0); NEUT # 9.0 10*3/uL (2.3-7.9); NEUT % 76.5 % (47.0-73.0); NUCLEATED RED BLOOD CELL 0.0 % (0.0-0.0); NUCLEATED RED BLOOD CELL 0.0 10*3/uL (0.0-0.0); PLATELET COUNT AUTOMATED 253 10*3/uL (130-400); RED CELL DISTRI WIDTH 13.3 % (0-14.5)
[2025-03-09 17:36] LABS: BUN 11 mg/dl (9-23); SGPT/ALT 32 U/L (5-49)
[2025-03-09] MEDS ORDERED: Ondansetron4 MG PO (18:31)
[2025-03-09] MEDS ORDERED: REGLAN10 M1 PO (18:31)
[2025-03-09] MEDS ORDERED: COLACE100 MG PO (18:31)
[2025-03-09] MEDS ORDERED: OMEPRAZOLE40 MG PO (18:31)
[2025-03-09] MEDS ORDERED: MIRALAX POWDER17 G1 PO (18:31)
== END 2025-03-09 18:31 | disposition home or self-care (01) ==
LOC: ED 14:53
PROVIDERS: Emergency Medicine
DX: K29.70 Gastritis, unspecified, without bleeding (principal); K64.9 Unspecified hemorrhoids; K59.00 Constipation, unspecified; E66.9 Obesity, unspecified; Z88.2 Allergy status to sulfonamides; Z88.1 Allergy status to other antibiotic agents; Z91.040 Latex allergy status; Z79.899 Other long term (current) drug therapy

== ENCOUNTER → 2025-05-03 | Outpatient (CLI) | payer OTHER ==
[~2025-05-03] MED LIST changes: +COLACE100 MG PO; +MIRALAX POWDER17 G1 PO; +OMEPRAZOLE40 MG PO; +Ondansetron4 MG PO; +REGLAN10 M1 PO
[2025-05-03 12:05] LABS: BASO # 0.0 10*3/uL (0.0-0.1); BASO % 0.5 % (0.0-1.0); EOS # 0.2 10*3/uL (0.0-0.4); EOS % 3.4 % (1.0-4.0); MEAN CELL VOLUME 89.0 fl (81.0-99.0); MEAN CORPUSCULAR HGB 28.9 pg (27.0-31.0); MEAN PLATELET VOLUME 9.6 fl (9.6-12.3); MONO # 0.5 10*3/uL (0.1-1.0); MONO % 7.3 % (3.0-9.0); NEUT # 3.6 10*3/uL (2.3-7.9); NEUT % 55.2 % (47.0-73.0); NUCLEATED RED BLOOD CELL 0.0 % (0.0-0.0); NUCLEATED RED BLOOD CELL 0.0 10*3/uL (0.0-0.0); PLATELET COUNT AUTOMATED 271 10*3/uL (130-400); RED CELL DISTRI WIDTH 13.1 % (0-14.5)
[2025-05-03 12:49] LABS: BUN 11 mg/dl (9-23); SGPT/ALT 32 U/L (5-49)
[2025-05-03 13:04] LABS: VITAMIN D, 25-HYDROXY 21.7 ng/mL (30-100)
== END | disposition home or self-care (01) ==
LOC: RHCWE 08:14
PROVIDERS: ATTEND Nurse Practitioner Family
DX: K21.9 Gastro-esophageal reflux disease without esophagitis (principal); E55.9 Vitamin D deficiency, unspecified; E66.01 Morbid (severe) obesity due to excess calories; Z13.29 Encounter for screening for other suspected endocrine disorder; Z13.1 Encounter for screening for diabetes mellitus; Z13.220 Encounter for screening for lipoid disorders; Z76.89 Persons encountering health services in other specified circumstances; Z79.899 Other long term (current) drug therapy